=== PATIENT | female | born 2000 | race Hispanic/Latino ===

== ENCOUNTER 2018-09-23 14:08 | Outpatient (CLI) | payer OTHER ==
--- NOTE | 2018-09-23 17:54 | RAD ---
CHEST TWO VIEWS: 09/23/2018 HISTORY: TB screening examination. COMPARISON: None. FINDINGS: The lungs are clear. The heart and mediastinal contours are unremarkable. IMPRESSION: Unremarkable two view examination of the chest-No radiographic evidence of active tuberculosis. POS: [facility]
== END 2018-09-23 14:09 | disposition home or self-care (01) ==
LOC: BICRAD 14:08
PROVIDERS: ATTEND Nurse Practitioner Family
DX: Z11.1 Encounter for screening for respiratory tuberculosis (principal)
CPT/HCPCS: 71046